=== PATIENT | female | born 1955 | race Caucasian/White ===

== ENCOUNTER 2019-09-01 08:05 | Day surgery (SDC) | payer MEDICARE, OTHER ==
[~2019-09-01] VITALS: Ht 160 cm; Wt 81.4 kg
--- NOTE | ~2019-09-01 | OP ---
PATIENT NAME: DORINDA GUY MEDICAL RECORD: [id number] :51 LOCATION:D[facility]OPS ADMISSION DATE: SURGEON: MALCOLM ACEVEDO DO DATE OF OPERATION: 09/01/2019 PROCEDURE: Colonoscopy. INDICATIONS FOR PROCEDURE: Iron deficiency anemia, history of colon polyps, left lower quadrant abdominal pain, diverticulosis. SCOPE: Olympus video pediatric colonoscope. MEDICATIONS: Propofol 150 mg IV per anesthesia. WITHDRAWAL TIME: 10 minutes. ESTIMATED BLOOD LOSS: None. COMPLICATIONS: None. FINDINGS: Informed consent was given. The patient was made comfortable with the above medication. After reaching an adequate level of sedation by slow IV push, the patient was placed on her left side. A digital rectal examination was performed and was normal. The endoscope was then advanced under direct visualization through the rectum to the cecum and terminal ileum. The endoscope was slowly withdrawn and mucosa was carefully examined. The prep quality was good. There were no polyps visualized on today's examination. There were scattered diverticulosis of mild severity throughout the entire colon. There was no evidence of diverticulitis. Retroflexion was performed in the rectum with visualization of grade I internal hemorrhoids without bleeding. The endoscope was withdrawn from the patient. The patient tolerated the procedure well and there were no complications. IMPRESSION: 1. Mild diverticulosis involving the entire colon. 2. Grade I internal hemorrhoids without bleeding. PLAN AND RECOMMENDATIONS: 1. Discharge home when recovery parameters are met. 2. Follow high fiber diet. 3. Continue current medications. 4. Continue follow up with primary care doctor regarding the iron deficiency anemia and consider hematology workup as I have not found anything on upper or lower endoscopy to indicate blood loss in the digestive tract. 5. Recall colonoscopy in 5 years due to a history of colon polyps. TRANSINT:[id number] Voice Confirmation ID: [id number] DOCUMENT ID: [id number] OPERATIVE REPORT [id number] DORINDA UGY MALCOLM ACEVEDO DO CC: [id number] DICTATION DATE: 09/01/19 1039 DIRECTOR INTELLIGENCE ANALYSIS PROGRAMS: 09/01/19 1548 [facility] 09/01/19 [facility] [address] [place] [address]
[2019-09-01 08:18] LABS: BASOPHILS 0.4 % (0-2); EOSINOPHILS 2.1 % (0-7); HEMATOCRIT 39.5 % (36.0-48.0); HEMOGLOBIN 12.3 g/dL (12-16); IMMATURE GRANULOCYTES 0.2 % (0-5); LYMPHOCYTES 20.1 % (15-50); MCH 25.8 pg (26.0-34.0); MCHC 31.1 g/dL (31.0-37.0); MEAN PLATELET VOLUME 8.2 fL (7.4-10.4); MONOCYTES 6.3 % (2-11); NEUTROPHILS 70.9 % (40-80); PLATELET COUNT 618 10x3/uL (130-400); RBC 4.76 10x6/uL (4.00-5.40); RDW 14.8 % (11.5-14.5); WBC 11.1 10x3/uL (4.8-10.8)
[2019-09-01 08:26] LABS: CALCIUM 9.7 mg/dL (8.5-10.1); CARBON DIOXIDE 27.9 mmol/L (21.0-32.0); CREATININE - SERUM 1.1 mg/dL (0.6-1.3); POTASSIUM - SERUM 3.9 mmol/L (3.5-5.1)
[2019-09-01 08:52] VITALS: BP 129/75; Ht 160 cm; Wt 81.4 kg
[2019-09-01] MEDS ORDERED: ZETIA10 MG PO (08:55)
[2019-09-01] MEDS ORDERED: LIPITOR80 MG PO (08:55)
[2019-09-01] MEDS ORDERED: KLONOPIN0.5 MG PO (08:56)
[2019-09-01] MEDS ORDERED: GLUCOPHAGE500 MG PO (08:56)
[2019-09-01] MEDS ORDERED: PREMARIN0.3 MG PO (08:57)
[2019-09-01] MEDS ORDERED: MAG-OX 400 MG400 MG PO (09:04)
[2019-09-01] MEDS ORDERED: K-TAB10 MEQ PO (09:04)
[2019-09-01] MEDS ORDERED: TRIAMTERENE-HC1 EAC6 PO (09:05)
[2019-09-01] MEDS ORDERED: BAYER CHEWABLE81 MG PO (09:06)
--- NOTE | 2019-09-01 13:45 | NUR ---
1135 TAKEN OUT VIA W/C TO CAR WITH FRIEND. ALL DISCHARGE CRITERIA MET. ALL DC INSTRUCTIONS GIVEN. ADVISED TO CALL OR COME BACK IF ANY PROBLEMS.
== END 2019-09-01 11:35 | disposition home or self-care (01) ==
LOC: D.OPS 08:05
PROVIDERS: Anesthesiology; ATTEND Internal Medicine Gastroenterology
DX: D50.9 Iron deficiency anemia, unspecified (principal); Z86.010 Personal history of colon polyps; R10.32 Left lower quadrant pain; K57.90 Diverticulosis of intestine, part unspecified, without perforation or abscess without bleeding; E11.9 Type 2 diabetes mellitus without complications; Z79.84 Long term (current) use of oral hypoglycemic drugs